=== PATIENT | female | born 1990 | race Caucasian/White ===

== ENCOUNTER 2017-04-15 19:20 | Emergency (ER) | payer SELFPAY ==
[2017-04-15 20:49] LABS: CHLORIDE,CL 105 mmol/L (98-110); SODIUM,NA 136 mmol/L (136-146)
--- NOTE | 2017-04-15 21:13 | EDM.PDOC ---
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 Patient indicates she has a positive home test but otherwise does not know how far along she is or has had no OB workup.] Review of systems: As per history of present illness and below otherwise all systems reviewed and negative. Past medical history: As per history of present illness and as reviewed below otherwise noncontributory. Surgical history: As per history of present illness and as reviewed below otherwise noncontributory. Social history: No reported history of drug or alcohol abuse. Family history: As per history of present illness and as reviewed below otherwise noncontributory. Physical exam: HEENT: Atraumatic, normocephalic, pupils reactive, negative for conjunctival pallor or scleral icterus, mucous membranes moist, throat clear, neck supple, nontender, trachea midline. Lungs: Clear to auscultation, breath sounds equal bilaterally, chest nontender. Heart: S1S2, regular, negative for clicks, rubs, or JVD. Abdomen: Soft, nondistended, nontender. Negative for masses or hepatosplenomegaly. Negative for costovertebral tenderness. Pelvis: Stable nontender. Genitourinary: Deferred. Rectal: Deferred. Extremities: Atraumatic, negative for cords or calf pain. Neurovascular unremarkable. Neuro: Awake, alert, oriented. Cranial nerves II through XII unremarkable. Cerebellum unremarkable. Motor and sensory unremarkable throughout. Exam nonfocal. Global assessment is benign save the subjective complaint as noted in the history of present illness Diagnostics: [Serum quantitative, ultrasound, CBC CMP] Therapeutics: [] Impression: [Second trimester (approx 17 weeks 4 days)] Plan: [Follow-up with OB] Definitive disposition and diagnosis as appropriate pending reevaluation and review of above. hypogastric area Pain Score (Numeric/FACES): 5 - Related Data Allergies Allergy/AdvReac Type Severity Reaction Status Date / Time No Known Allergies Allergy Verified 04/15/17 19:44 Home Meds: Home Meds . [No Known Home Meds] 04/15/17 [History] Past Medical History - Past Health History Medical/Surgical History: Denies Medical/Surgical History Neurological History: Reports: Migraines Social & Family History - Family History Family Medical History: Noncontributory - Tobacco Use Smoking Status *Q: Current Every Day Smoker Years of Tobacco use: 11 Packs/Tins Daily: 1 - Recreational Drug Use Recreational Drug Use: Yes Drug Use in Last 12 Months: Yes Recreational Drug Type: Reports: Marijuana/Hashish ED ROS GENERAL - Review of Systems Review Of Systems: See Below (History of present illness) ED EXAM, GENERAL - Physical Exam Exam: See Below (History of present illness) Course - Vital Signs Last Recorded V/S: Last Vital Signs Temp 36.7 C 04/15/17 19:20 Pulse 75 04/15/17 19:20 Resp 18 04/15/17 19:20 BP 101/69 04/15/17 19:20 Pulse Ox 99 04/15/17 19:20 - Orders/Labs/Meds Orders: Active Orders 24 hr Category Date Time Status OB 2 Or 3 Tri Sgl 1st Gest [US] Stat Exams 04/15/17 20:11 Taken Labs: Laboratory Tests 04/15/17 04/15/17 04/15/17 Range/Units 20:14 20:20 20:20 WBC 11.23 H (4.0-11.0) K/uL RBC 4.00 L (4.30-5.90) M/uL Hgb 12.5 (12.0-16.0) g/dL Hct 37.7 (36.0-46.0) % MCV 94.3 (80.0-98.0) fL MCH 31.3 (27.0-32.0) pg MCHC 33.2 (31.0-37.0) g/dL RDW Std Deviation 45.2 (28.0-62.0) fl RDW Coeff of Bernadette 13 (11.0-15.0) % Plt Count 215 (150-400) K/uL MPV 9.90 (7.40-12.00) fL Neut % (Auto) 71.6 (48.0-80.0) % Lymph % (Auto) 19.2 (16.0-40.0) % [place] % (Auto) 7.5 (0.0-15.0) % Eos % (Auto) 1.4 (0.0-7.0) % Baso % (Auto) 0.3 (0.0-1.5) % Neut # (Auto) 8.0 H (1.4-5.7) K/uL Lymph # (Auto) 2.2 (0.6-2.4) K/uL Hettinger # (Auto) 0.8 (0.0-0.8) K/uL Eos # (Auto) 0.2 (0.0-0.7) K/uL Baso # (Auto) 0.0 (0.0-0.1) K/uL Nucleated RBC % 0.0 /100WBC Nucleated RBCs # 0 K/uL Sodium 136 (136-146) mmol/L Potassium 3.7 (3.5-5.1) mmol/L Chloride 105 (98-110) mmol/L Carbon Dioxide 23 (21-31) mmol/L BUN 8 (6.0-23.0) mg/dL Creatinine 0.7 (0.6-1.5) mg/dL Est Cr Clr Drug Dosing 103.63 mL/min Estimated GFR (MDRD) > 60.0 ml/min Glucose 78 (60-110) mg/dL Calcium 8.9 (8.8-10.8) mg/dL Total Bilirubin 0.2 (0.1-1.5) mg/dL AST 15 (5-40) IU/L ALT 12 (8-54) IU/L Alkaline Phosphatase 50 (40-150) Total Protein 7.2 (6.0-8.0) g/dL Albumin 3.7 (3.5-5.0) g/dL Globulin 3.5 (2.0-3.5) g/dL Albumin/Globulin Ratio 1.1 L (1.3-2.8) HCG, Quant 46862.3 mIU/mL Urine Color YELLOW Urine Appearance SLT CLOUDY Urine pH 7.0 (5.0-8.0) Ur Specific [place] 1.020 (1.001-1.035) Urine Protein NEGATIVE (NEGATIVE) mg/dL Urine Glucose (UA) NEGATIVE (NEGATIVE) mg/dL Urine Ketones NEGATIVE (NEGATIVE) mg/dL Urine Occult Blood NEGATIVE (NEGATIVE) Urine Nitrite NEGATIVE (NEGATIVE) Urine Bilirubin NEGATIVE (NEGATIVE) Urine Urobilinogen 0.2 (<2.0) EU/dL Ur Leukocyte Esterase NEGATIVE (NEGATIVE) Urine RBC 0-1 (0-2/HPF) Urine WBC 0-1 (0-5/HPF) Ur Epithelial Cells FEW (NONE-FEW) Amorphous Sediment MODERATE (NEGATIVE) Urine Bacteria FEW (NEGATIVE) Blood Type 04/15/17 Range/Units 20:20 WBC (4.0-11.0) K/uL RBC (4.30-5.90) M/uL Hgb (12.0-16.0) g/dL Hct (36.0-46.0) % MCV (80.0-98.0) fL MCH (27.0-32.0) pg MCHC (31.0-37.0) g/dL RDW Std Deviation (28.0-62.0) fl RDW Coeff of Bernadette (11.0-15.0) % Plt Count (150-400) K/uL MPV (7.40-12.00) fL Neut % (Auto) (48.0-80.0) % Lymph % (Auto) (16.0-40.0) % [place] % (Auto) (0.0-15.0) % Eos % (Auto) (0.0-7.0) % Baso % (Auto) (0.0-1.5) % Neut # (Auto) (1.4-5.7) K/uL Lymph # (Auto) (0.6-2.4) K/uL [place] # (Auto) (0.0-0.8) K/uL Eos # (Auto) (0.0-0.7) K/uL Baso # (Auto) (0.0-0.1) K/uL Nucleated RBC % /100WBC Nucleated RBCs # K/uL Sodium (136-146) mmol/L Potassium (3.5-5.1) mmol/L Chloride (98-110) mmol/L Carbon Dioxide (21-31) mmol/L BUN (6.0-23.0) mg/dL Creatinine (0.6-1.5) mg/dL Est Cr Clr Drug Dosing mL/min Estimated GFR (MDRD) ml/min Glucose (60-110) mg/dL Calcium (8.8-10.8) mg/dL Total Bilirubin (0.1-1.5) mg/dL AST (5-40) IU/L ALT (8-54) IU/L Alkaline Phosphatase (40-150) Total Protein (6.0-8.0) g/dL Albumin (3.5-5.0) g/dL Globulin (2.0-3.5) g/dL Albumin/Globulin Ratio (1.3-2.8) HCG, Quant mIU/mL Urine Color Urine Appearance Urine pH (5.0-8.0) Ur Specific [place] (1.001-1.035) Urine Protein (NEGATIVE) mg/dL Urine Glucose (UA) (NEGATIVE) mg/dL Urine Ketones (NEGATIVE) mg/dL Urine Occult Blood (NEGATIVE) Urine Nitrite (NEGATIVE) Urine Bilirubin (NEGATIVE) Urine Urobilinogen (<2.0) EU/dL Ur Leukocyte Esterase (NEGATIVE) Urine RBC (0-2/HPF) Urine WBC (0-5/HPF) Ur Epithelial Cells (NONE-FEW) Amorphous Sediment (NEGATIVE) Urine Bacteria (NEGATIVE) Blood Type O POSITIVE Departure - Departure Time of Disposition: 21:41 Disposition: Home, Self-Care 01 Condition: Good Clinical Impression: - Discharge Information Referrals: PCP,None [Primary Care Provider] - Forms: ED Department Discharge Additional Instructions: The following information is given to patients seen in the emergency department who are being discharged to home. This information is to outline your options for follow-up care. We provide all patients seen in our emergency department with a follow-up referral. The need for follow-up, as well as the timing and circumstances, are variable depending upon the specifics of your emergency department visit. If you don't have a primary care physician on staff, we will provide you with a referral. We always advise you to contact your personal physician following an emergency department visit to inform them of the circumstance of the visit and for follow-up with them and/or the need for any referrals to a consulting specialist. The emergency department will also refer you to a specialist when appropriate. This referral assures that you have the opportunity for follow-up care with a specialist. All of these measure are taken in an effort to provide you with optimal care, which includes your follow-up. Under all circumstances we always encourage you to contact your private physician who remains a resource for coordinating your care. When calling for follow-up care, please make the office aware that this follow-up is from your recent emergency room visit. If for any reason you are refused follow-up, please contact the [facility] Emergency Department at and asked to speak to the emergency department charge nurse. Follow-up with an FIRE PREVENTION SPECIALIST Return to ED as needed as discussed [facility] [address] [place] [id number]
--- NOTE | 2017-04-16 11:53 | US ---
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 Site : 1990 Study: US OB Pelvis [id number]/30/2017 9:09:35 PM Ordering Physician: Doctor Greenberg Final Report: INDICATION: Pelvic pain. TECHNIQUE: Limited transabdominal obstetrical ultrasound. COMPARISON: None available FINDINGS: A single live intrauterine gestation is present. Estimated gestational age based on biparietal diameter, head circumference, abdominal circumference and femur length is 17 weeks and 4 days. There is cardiac activity with a heart rate of 139 BPM. Evaluation of anatomy is very limited. The placenta is posterior. An MICAH is not measured. The cervix is not well visualized. Neither ovary is seen. No free fluid is identified. IMPRESSION: A single live intrauterine gestation at 7 weeks and 4 days by sonographic measurements. Limited evaluation of anatomy. A full anatomical survey is recommended at 18-20 weeks. Nonvisualization of the ovaries. Dictated by Lisandro Ruvalcaba MD @ 04/15/2017 9:21:56 PM Dictated by: Lisandro Ruvalcaba MD @ 04/15/2017 21:22:10 ----- ADDENDUM ----- CORRECTION: The 1st impression entry should say: "A single live intrauterine gestation at 17 weeks and 4 days by sonographic measurements." Dictated by Lisandro Ruvalcaba MD @ Apr 15 2017 9:49PM (Electronic Signature) Report Signed by Proxy. JULITO
== END 2017-04-15 22:17 | disposition home or self-care (01) ==
LOC: MW.ED 19:20
DX: O99.89 Other specified diseases and conditions complicating pregnancy, childbirth and the puerperium (principal); R10.84 Generalized abdominal pain; O99.332 Smoking (tobacco) complicating pregnancy, second trimester; F17.210 Nicotine dependence, cigarettes, uncomplicated; Z3A.17 17 weeks gestation of pregnancy
CPT/HCPCS: 36415; 76805; 76805-26; 80053; 81001; 84702; 85025; 86900; 86901; 99283; 99284-25

== ENCOUNTER 2017-09-26 14:45 | Inpatient (IN) | payer MEDICAID ==
[2017-09-26] MEDS ORDERED: Nalbuphine 10 MG/1 ML Vial IVPUSH PRN (15:56)
[2017-09-26] MEDS ORDERED: Water For Irrigation,Sterile 1,000 ML Container IRR PRN (15:56)
[2017-09-26] MEDS ORDERED: Lidocaine 1% 50 ML MDV INJECT PRN (15:56)
[2017-09-26] MEDS ORDERED: Sodium Chloride 0.9% 10 ML Syringe FLUSH PRN (15:56)
[2017-09-26] MEDS ORDERED: Sodium Chloride 0.9% 2.5 ML Syringe FLUSH PRN (15:56)
[2017-09-26] MEDS ORDERED: Tranexamic Acid 1,000 MG in Sodium Chloride 0.9% 100 ML IV PRN (15:56)
[2017-09-26] MEDS ORDERED: Methylergonovine 0.2 MG/1 ML Amp IM PRN (15:56)
[2017-09-26] MEDS ORDERED: Terbutaline 1 MG/ML SDV SUBCUT PRN (15:56)
[2017-09-26] MEDS ORDERED: Misoprostol 200 MCG Tab PO PRN (15:56)
[2017-09-26] MEDS ORDERED: Carboprost Tromethamine 250 MCG/1 ML Amp IM PRN (15:56)
[2017-09-26] MEDS ORDERED: Misoprostol 25 MCG (1/4 of 100 MCG) Tab VAG PRN (15:56)
[2017-09-26] MEDS ORDERED: Oxytocin/0.9 % Sodium Chloride 30 UNIT/500 ML BAG IV SCH ×2 (16:00)
[2017-09-26] MEDS: Butorphanol 1 MG/ML SDV IVPUSH PRN ×2 (21:36→22:21)
[2017-09-26] MEDS: Lactated Ringers 1,000 ML IV SCH ×2 (21:36→23:16)
[2017-09-26] MEDS ORDERED: Ropivacaine 0.2% 2 MG/ML 20 ML SDV ONE (22:59)
--- NOTE | 2017-09-26 23:26 | PCM.PREANE ---
Preanesthetic Assessment - Procedure Proposed Procedure: labor epidural - Anesthesia/Transfusion/Family Hx Anesthesia History: No Prior Anesthesia Family History of Anesthesia Reaction: No - Review of Systems Other: Reports: None - Physical Assessment Height: 5 ft 5 in Weight: 71.668 kg ASA Class: 2 Mental Status: Alert & Oriented x3 Airway Class: Mallampati = 1 Dentition: Reports: Normal Dentition (multiple facial and tongue piercing) Thyro-Mental Finger Breadths: 3 Mouth Opening Finger Breadths: 3 ROM/Head Extension: Full - Lab Values: Laboratory Last Values WBC 8.62 K/uL (4.0-11.0) 09/26/17 16:10 RBC 3.84 M/uL (4.30-5.90) L 09/26/17 16:10 Hgb 11.0 g/dL (12.0-16.0) L 09/26/17 16:10 Hct 34.0 % (36.0-46.0) L 09/26/17 16:10 MCV 88.5 fL (80.0-98.0) 09/26/17 16:10 MCH 28.6 pg (27.0-32.0) 09/26/17 16:10 MCHC 32.4 g/dL (31.0-37.0) 09/26/17 16:10 RDW Std Deviation 42.9 fl (28.0-62.0) 09/26/17 16:10 RDW Coeff of Bernadette 13 % (11.0-15.0) 09/26/17 16:10 Plt Count 202 K/uL (150-400) 09/26/17 16:10 MPV 11.50 fL (7.40-12.00) 09/26/17 16:10 Nucleated RBC % 0.0 /100WBC 09/26/17 16:10 Nucleated RBCs # 0 K/uL 09/26/17 16:10 Blood Type O POSITIVE 09/26/17 17:09 Antibody Screen NEGATIVE 09/26/17 17:09 - Allergies Allergies/Adverse Reactions: Allergies Allergy/AdvReac Type Severity Reaction Status Date / Time No Known Allergies Allergy Verified 09/26/17 22:08 - Blood Blood Available: Yes Product(s) Available: PRBC - Acknowledgements Anesthesia Type Planned: Epidural Pt an Appropriate Candidate for the Planned Anesthesia: Yes Alternatives and Risks of Anesthesia Discussed w Pt/Guardian: Yes Pt/Guardian Understands and Agrees with Anesthesia Plan: Yes PreAnesthesia Questionnaire - Past Health History Medical/Surgical History: Denies Medical/Surgical History HEENT History: Reports: Other (See Below) Other HEENT History: glasses Cardiovascular History: Reports: Heart Murmur Other Cardiovascular History: was diagnosed as a Respiratory History: Reports: Other (See Below) Other Respiratory History: Environmental allergies sneezing and itching of eyes [employer] History: Reports: Musculoskeletal History: Reports: Other (See Below) Other Musculoskeletal History: fell during 5th month of on steps and has a sore tailbone, never went to physician and sore now. Neurological History: Reports: Concussion, Migraines Other Neuro History: x3 - Infectious Disease History Infectious Disease History: Reports: Chicken Pox - Past Surgical History HEENT Surgical History: Reports: None Cardiovascular Surgical History: Reports: None Respiratory Surgical History: Reports: None Neurological Surgical History: Reports: None - SUBSTANCE USE Smoking Status *Q: Light Tobacco Smoker Tobacco Use Within Last Twelve Months: Cigarettes Recreational Drug Use History: Yes Recreational Drug Type: Reports: Marijuana/Hashish - HOME MEDS Home Medications: Home Meds Ranitidine HCl [Zantac 75] 09/26/17 [History] - CURRENT (IN HOUSE) MEDS Current Meds: Current Medications Butorphanol Tartrate (Stadol) 1 mg IVPUSH Q1H PRN PRN Reason: Pain Last Admin: 09/26/17 22:21 Dose: 1 mg Carboprost Tromethamine (Hemabate Ds) 250 mcg IM ASDIRECTED PRN PRN Reason: Post Hemorrhage Lactated Ringer's (Ringers, Lactated) 1,000 mls @ 150 mls/hr IV ASDIRECTED TOÑA Last Admin: 09/26/17 23:16 Dose: 150 mls/hr Oxytocin/Sodium Chloride (Oxytocin 30 Unit/500 Ml-Ns) 30 unit in 500 mls @ 999 mls/hr IV TITRATE TOÑA Oxytocin/Sodium Chloride (Oxytocin 30 Unit/500 Ml-Ns) 30 unit in 500 mls @ 2 mls/hr IV TITRATE TOÑA; Protocol Tranexamic Acid 1,000 mg/ (Sodium Chloride) 110 mls @ 660 mls/hr IV ONETIME PRN PRN Reason: Bleeding Lidocaine HCl (Xylocaine 1%) 50 ml INJECT .ONCE PRN PRN Reason: Laceration repair Methylergonovine Maleate (Methergine) 0.2 mg IM ASDIRECTED PRN PRN Reason: Post Hemorrhage Misoprostol (Cytotec) 200 mcg PO .ONCE PRN PRN Reason: Post Hemorrhage Misoprostol (Cytotec) 25 mcg VAG Q4H PRN PRN Reason: Cervical Ripening Last Admin: 09/26/17 16:45 Dose: 25 mcg Nalbuphine HCl (Nubain) 10 mg IVPUSH Q1H PRN PRN Reason: Pain (severe 7-10) Sodium Chloride (Saline Flush) 10 ml FLUSH ASDIRECTED PRN PRN Reason: Keep Vein Open Sodium Chloride (Saline Flush) 2.5 ml FLUSH ASDIRECTED PRN PRN Reason: Keep Vein Open Sterile Water (Sterile Water For Irrigation) 1,000 ml IRR ASDIRECTED PRN PRN Reason: delivery Terbutaline Sulfate (Brethine) 0.25 mg SUBCUT ASDIRECTED PRN PRN Reason: Tacysystole Discontinued Medications Fentanyl/Bupivacaine HCl (Dlbjcjwv-[id number]-Xo 2 Mcg/Ml-0.125%) Confirm Administered Dose 100 mls @ as directed EP .STK-MED ONE Stop: 09/26/17 23:00 Ropivacaine (Naropin 0.2%) Confirm Administered Dose 20 ml .ROUTE .STK-MED ONE Stop: 09/26/17 23:00
[2017-09-27] MEDS ORDERED: Morphine PF 1 MG/ML Amp ONE (01:19)
[2017-09-27] MEDS ORDERED: ceFAZolin/Dextrose,Iso-Osmotic 2 GM/50 ML Duplex Bag IV ONE (01:19)
[2017-09-27] MEDS ORDERED: Bupivacaine 0.5% 10 ML SDV ONE (01:23)
[2017-09-27] MEDS ORDERED: Citric Acid/Sodium Citrate Solution 30 ML Cup ONE (01:24)
[2017-09-27] MEDS ORDERED: Phenylephrine/Normal Saline 100 MCG/ML 10 ML Syringe ONE (01:50)
[2017-09-27] MEDS ORDERED: Oxytocin 10 Units/1 ML SDV ONE ×2 (02:04→02:05)
[2017-09-27] MEDS ORDERED: Bisacodyl 10 MG Supp RECTAL PRN (02:20)
[2017-09-27] MEDS ORDERED: diphenhydrAMINE 50 MG/ML SDV IVPUSH PRN ×2 (02:20→02:42)
[2017-09-27] MEDS ORDERED: Acetaminophen/oxyCODONE 325-5 MG Tab PO PRN ×2 (02:20→02:45)
[2017-09-27] MEDS ORDERED: Lanolin 100% Cream 7 GM Tube TOP PRN (02:20)
--- NOTE | 2017-09-27 02:20 | PCM.OPNOTE ---
- General Post-Op/Procedure Note Date of Surgery/Procedure: 09/27/17 Operative Procedure(s): Primary LTCS Findings: Viable male APGARs 8, 9 weight 8 lb 2 oz, breech presentation. Intact placenta with 3V cord Pre Op Diagnosis: 41 week IUP. Breech presentation Post-Op Diagnosis: Same Anesthesia Technique: Epidural Primary Surgeon: Vashti Lucero Fluid Replacement, Intraop: 1,300 EBL in mLs: 500 Complications: none known Condition: Good Free Text/Narrative:: Dictation [id number]
[2017-09-27] MEDS ORDERED: Lactated Ringers 1,000 ML IV SCH (02:30)
[2017-09-27] MEDS ORDERED: Nalbuphine 10 MG/1 ML Vial IVPUSH PRN (02:42)
[2017-09-27] MEDS ORDERED: Naloxone 0.4 MG/ML Syringe IVPUSH PRN (02:42)
[2017-09-27] MEDS ORDERED: fentaNYL 100 MCG/2 ML SDV IVPUSH PRN (02:45)
--- NOTE | 2017-09-27 02:47 | PCM.POSTAN ---
POST ANESTHESIA ASSESSMENT - MENTAL STATUS Mental Status: Alert, Oriented - RESPIRATORY Respiratory Status: Respiratory Rate WNL, Airway Patent, O2 Saturation Stable - CARDIOVASCULAR CV Status: Pulse Rate WNL, Blood Pressure Stable - GASTROINTESTINAL GI Status: No Symptoms - PAIN Pain Score: 0 - POST OP HYDRATION Hydration Status: Adequate & Stable
[2017-09-27] MEDS ORDERED: Meperidine PF 25 MG/ML Syringe ONE (02:52)
[2017-09-27] MEDS ORDERED: diphenhydrAMINE 50 MG/ML SDV ONE (02:56)
[2017-09-27] MEDS: Ketorolac 30 MG/ML SDV IVPUSH SCH ×4 (02:59→21:26)
[2017-09-27] MEDS: Ondansetron 4 MG/2 ML SDV IV PRN ×2 (04:03→18:11)
--- NOTE | 2017-09-27 04:27 | OR ---
SURGEON: Vashti Lucero M.D. DATE OF PROCEDURE: 09/27/2017 PREOPERATIVE DIAGNOSES: 1. A 41-week intrauterine . 2. Breech presentation. POSTOPERATIVE DIAGNOSES: 1. A 41-week intrauterine . 2. Breech presentation. PROCEDURE: Primary low-transverse section. ANESTHESIA: Epidural. ESTIMATED BLOOD LOSS: 500 mL. FLUIDS: 1300 mL crystalloid in OR. COMPLICATIONS: None. FINDINGS: Viable male, scores 8 at 1 minute, 9 at 5 minutes. Weight of 8 pounds 2 ounces. Intact placenta, 3-vessel cord. Normal-appearing pelvis. DISPOSITION: to nursery, mom to PACU, stable. PROCEDURE IN DETAIL: Marija is a 27-year-old, primigravida at 41 weeks' gestational age, who presented on the evening of 09/27/2017, for induction of labor. She is actually followed by Dr. Michael Angulo and was supposed to be induced previous days; however, this induction had been delayed due to activity on Labor and Delivery. Therefore, she presents this evening and we are now covering for my practice. She underwent initial dose of Cytotec ripening as she was found to be a centimeter, 60% effaced, -3 station on initial presentation. The patient responded rather well to this. Began laboring progressively, changed cervix within a few hours, had spontaneous rupture of membranes with clear fluid, and underwent regional anesthesia in the form of epidural. As the patient was nearing complete, the nurse examined her and noted that she was not palpating typical sutures. A sonogram was performed and the fetus was found to be in breech presentation. I presented to Labor and Delivery, evaluated the patient and confirmed breech presentation. Therefore, I discussed with the patient that at this juncture would advise proceeding with delivery to decrease the risk of cephalic entrapment. She voiced her understanding and does agree to proceed. Risks of procedure discussed including infection, bleeding, possible trauma surrounding bowel, bladder, ureter, in case of excessive blood loss, need for blood product transfusion, rare lifesaving circumstances, need for hysterectomy. Proper consent obtained. The patient was taken to the operating room, where she underwent of her epidural. A Bro catheter was in place. SCDs for lower extremities. Received Ancef prophylactically. Time-out was performed. She was prepped and draped in the usual sterile fashion. She was placed in frog-leg position. Labor and Delivery nurse was placed for vaginal hand for assistance with delivery of the buttocks. Draping was placed. Anesthesia was tested, found to be adequate. Pfannenstiel skin incision was created, carried down to level of the rectus fascia which was incised in midline, lateralized on either side sharply and bluntly. The superior aspect of fascia was tented upward, dissected sharply and bluntly from underlying muscle. In a similar fashion performed on the inferior aspect of the fascia. Rectus muscles were in the midline. Peritoneum was entered. Rectus muscles and peritoneum were lateralized bluntly. Uterine position and position palpated. The uterovesical reflection was visualized. Bladder flap was created and mobilized away from lower uterine segment. Low transverse hysterotomy was now performed. Uterine cavity was entered bluntly with the scalpel. Hysterotomy was lateralized bluntly. The nurse was able to move the buttocks cephalad while I was attempting to deliver from the pelvis. I was able to secure the buttocks delivered from the pelvis. The buttocks were delivered followed by the lower extremities, trunk, left upper extremity, right upper extremity. The head was flexed and delivered. Nuchal cord x1 was noted to be present. The 's oropharynx and nares were bulb suctioned. Cord clamped x2 and cut. Infant was handed off to attending physician, Dr. physician Dr. Ann. Cord arterial, cord venous, cord blood samples obtained. The placenta was now delivered. Uterine cavity was cleared of all clot and debris. The uterus was inspected and noted to have any anomalies. Hysterotomy was repaired using 0 Vicryl in continuous running and locked fashion followed by re-imbricating layer. Area of oozing in midline was replicated with [id number] suture. The posterior aspect of the uterus inspected, no defects or hematomas found to be forming. The region was well irrigated and suction dried. Uterus was turned to the abdominal cavity. Colonic gutters were cleared of all clot and debris, well irrigated, suction dried. The hysterotomy was again inspected and found to be hemostatic. Self-retaining tractor now gently removed. Hysterotomy once again inspected and found to be hemostatic. Rectus muscles and peritoneum were reapproximated using 0 Vicryl with inverted mattress suture technique. Anterior aspect of the muscle and posterior aspect of the fascia were closely inspected. Any areas of oozing were cauterized. The rectus fascia was reapproximated using 0 Vicryl in continuous running fashion beginning laterally on either side and meeting in the midline. Subcutaneous tissue was well irrigated and suction dried. Any areas of oozing were cauterized. The skin edges were reapproximated using 3-0 Vicryl and a Nigel needle in a subcuticular fashion. Incision was re-imbricated with 1/2-inch Steri-Strips and Mastisol. Sponge, instrument, and needle counts were correct x2. The patient has tolerated the procedure well overall, hemostasis evident. She will go back to PACU in stable condition. Infant to nursery. LETA / RACHEL /[id number] MTDD
--- NOTE | 2017-09-27 07:50 | PCM48HPAN ---
Post Anesthesia Note - EVALUATION WITHIN 48HRS OF ANESTHETIC Vital Signs in Normal Range: Yes Patient Participated in Evaluation: Yes Respiratory Function Stable: Yes Airway Patent: Yes Cardiovascular Function Stable: Yes Hydration Status Stable: Yes Pain Control Satisfactory: Yes Nausea and Vomiting Control Satisfactory: Yes Mental Status Recovered: Yes Resp Rate: 17
[2017-09-27] MEDS ORDERED: Simethicone 80 MG Tab.Chew PO PRN (08:16)
--- NOTE | 2017-09-27 08:16 | PCM.PNPP ---
- General Info Date of Service: 09/27/17 Subjective Update: Rested some through the night, pain is controlled. is going fairly well. Functional Status: Reports: Pain Controlled - Review of Systems General: Denies: Fever, Weakness Pulmonary: Denies: Shortness of Breath Cardiovascular: Denies: Chest Pain, Palpitations, Lightheadedness Gastrointestinal: Reports: Abdominal Pain (controlled incisional pain). Denies : Nausea, Vomiting Genitourinary: Denies: Flank Pain Skin: Reports: No Symptoms Psychiatric: Reports: No Symptoms - General Info Date of Service: 09/27/17 - Patient Data Vital Signs - Most Recent: Last Vital Signs Temp 36.7 C 09/27/17 08:00 Pulse 85 09/27/17 08:00 Resp 14 09/27/17 08:00 BP 118/72 09/27/17 08:00 Pulse Ox 94 L 09/27/17 08:00 Weight - Most Recent: 71.668 kg I&O - Last 24 Hours: Intake & Output 09/26/17 09/27/17 09/27/17 22:59 06:59 14:59 Intake Total 3450 Output Total 360 Balance 3090 Lab Results - Last 24 Hours: Laboratory Results - last 24 hr 09/26/17 09/26/17 09/27/17 Range/Units 16:10 17:09 01:44 WBC 8.62 (4.0-11.0) K/uL RBC 3.84 L (4.30-5.90) M/uL Hgb 11.0 L (12.0-16.0) g/dL Hct 34.0 L (36.0-46.0) % MCV 88.5 (80.0-98.0) fL MCH 28.6 (27.0-32.0) pg MCHC 32.4 (31.0-37.0) g/dL RDW Std Deviation 42.9 (28.0-62.0) fl RDW Coeff of Bernadette 13 (11.0-15.0) % Plt Count 202 (150-400) K/uL MPV 11.50 (7.40-12.00) fL Nucleated RBC % 0.0 /100WBC Nucleated RBCs # 0 K/uL Cord ABG pH 7.169 L (7.18-7.38) Cord ABG Base Excess -7 (-10--2) Cord VBG pH 7.235 L (7.25-7.45) Cord VBG Base Excess -7 (-10--2) Blood Type O POSITIVE Antibody Screen NEGATIVE Med Orders - Current: Current Medications Bisacodyl (Dulcolax) 10 mg RECTAL .ONCE PRN PRN Reason: Constipation Butorphanol Tartrate (Stadol) 1 mg IVPUSH Q1H PRN PRN Reason: Pain Last Admin: 09/26/17 22:21 Dose: 1 mg Carboprost Tromethamine (Hemabate Ds) 250 mcg IM ASDIRECTED PRN PRN Reason: Post Hemorrhage Diphenhydramine HCl (Benadryl) 25 mg IVPUSH Q6H PRN PRN Reason: Itching or Nausea Diphenhydramine HCl (Benadryl) 25 mg IVPUSH Q4H PRN PRN Reason: Itching Stop: 09/28/17 02:44 Docusate Sodium (Colace) 100 mg PO BID [facility] Emollient Ointment (Lansinoh Hpa) 0 gm TOP ASDIRECTED PRN PRN Reason: Sore Nipples Fentanyl (Sublimaze) 25 - 50 mcg IVPUSH Q30M PRN PRN Reason: Pain Lactated Ringer's (Ringers, Lactated) 1,000 mls @ 150 mls/hr IV ASDIRECTED [facility] Last Admin: 09/26/17 23:16 Dose: 150 mls/hr Oxytocin/Sodium Chloride (Oxytocin 30 Unit/500 Ml-Ns) 30 unit in 500 mls @ 999 mls/hr IV TITRATE [facility] Oxytocin/Sodium Chloride (Oxytocin 30 Unit/500 Ml-Ns) 30 unit in 500 mls @ 2 mls/hr IV TITRATE [facility]; Protocol Tranexamic Acid 1,000 mg/ (Sodium Chloride) 110 mls @ 660 mls/hr IV ONETIME PRN PRN Reason: Bleeding Lactated Ringer's (Ringers, Lactated) 1,000 mls @ 125 mls/hr IV ASDIRECTED [facility] Last Admin: 09/27/17 04:06 Dose: 125 mls/hr Ibuprofen (Motrin) 800 mg PO Q8H PRN PRN Reason: mild pain or fever Ketorolac Tromethamine (Toradol) 30 mg IVPUSH Q6H [facility] Stop: 09/28/17 02:31 Last Admin: 09/27/17 02:59 Dose: 30 mg Lidocaine HCl (Xylocaine 1%) 50 ml INJECT .ONCE PRN PRN Reason: Laceration repair Methylergonovine Maleate (Methergine) 0.2 mg IM ASDIRECTED PRN PRN Reason: Post Hemorrhage Misoprostol (Cytotec) 200 mcg PO .ONCE PRN PRN Reason: Post Hemorrhage Misoprostol (Cytotec) 25 mcg VAG Q4H PRN PRN Reason: Cervical Ripening Last Admin: 09/26/17 16:45 Dose: 25 mcg Nalbuphine HCl (Nubain) 10 mg IVPUSH Q1H PRN PRN Reason: Pain (severe 7-10) Nalbuphine HCl (Nubain) 5 mg IVPUSH Q3H PRN PRN Reason: Pruritis Stop: 09/28/17 02:45 Naloxone HCl (Narcan) 0.1 mg IVPUSH ONETIME PRN PRN Reason: Other Stop: 09/28/17 02:45 Ondansetron HCl (Zofran) 4 mg IV Q4H PRN PRN Reason: Nausea/Vomiting Last Admin: 09/27/17 04:03 Dose: 4 mg Oxycodone/Acetaminophen (Percocet 325-5 Mg) 1 tab PO Q4H PRN PRN Reason: Pain (moderate 4-6) Oxycodone/Acetaminophen (Percocet 325-5 Mg) 2 tab PO Q4H PRN PRN Reason: Pain (moderate 4-6) Oxycodone/Acetaminophen (Percocet 325-5 Mg) 1 - 2 tab PO Q6H PRN PRN Reason: Pain Stop: 09/29/17 14:00 Sodium Chloride (Saline Flush) 10 ml FLUSH ASDIRECTED PRN PRN Reason: Keep Vein Open Sodium Chloride (Saline Flush) 2.5 ml FLUSH ASDIRECTED PRN PRN Reason: Keep Vein Open Sterile Water (Sterile Water For Irrigation) 1,000 ml IRR ASDIRECTED PRN PRN Reason: delivery Terbutaline Sulfate (Brethine) 0.25 mg SUBCUT ASDIRECTED PRN PRN Reason: Tacysystole Last Admin: 09/27/17 01:03 Dose: 0.25 mg Discontinued Medications Bupivacaine HCl (Sensorcaine-Mpf 0.5%) Confirm Administered Dose 20 ml .ROUTE .STK-MED ONE Stop: 09/27/17 01:24 Last Admin: 09/27/17 07:42 Dose: Not Given Cefazolin Sodium/Dextrose (Ancef) Confirm Administered Dose 2 gm IV .STK-MED ONE Stop: 09/27/17 01:20 Citric Acid/Sodium Citrate (Bicitra Solution) Confirm Administered Dose 30 ml .ROUTE .ST-MED ONE Stop: 09/27/17 01:25 Last Admin: 09/27/17 01:24 Dose: 30 ml Diphenhydramine HCl (Benadryl) Confirm Administered Dose 50 mg .ROUTE .ST-MED ONE Stop: 09/27/17 02:57 Last Admin: 09/27/17 07:42 Dose: Not Given Fentanyl/Bupivacaine HCl (Osmrtfde-Nfbpo-Qm 2 Mcg/Ml-0.125%) Confirm Administered Dose 100 mls @ as directed EP .ST-MED ONE Stop: 09/26/17 23:00 Last Admin: 09/27/17 07:42 Dose: Not Given Meperidine HCl (Demerol) Confirm Administered Dose 25 mg .ROUTE .ST-MED ONE Stop: 09/27/17 02:53 Last Admin: 09/27/17 07:42 Dose: Not Given Morphine Sulfate (Duramorph Pf) Confirm Administered Dose 1 mg .ROUTE .STK-MED ONE Stop: 09/27/17 01:20 Oxytocin (Pitocin) Confirm Administered Dose 10 unit .ROUTE .STK-MED ONE Stop: 09/27/17 02:05 Oxytocin (Pitocin) Confirm Administered Dose 20 unit .ROUTE .STK-MED ONE Stop: 09/27/17 02:06 Phenylephrine HCl (Phenylephrine In Ns 100 Mcg/Ml) Confirm Administered Dose 1 mg .ROUTE .STK-MED ONE Stop: 09/27/17 01:51 Ropivacaine (Naropin 0.2%) Confirm Administered Dose 20 ml .ROUTE .STK-MED ONE Stop: 09/26/17 23:00 Last Admin: 09/27/17 07:42 Dose: Not Given - Interaction Support Person: Significant Other - Recovery Exam Fundal Tone: Firm Fundal Level: 1 Fingerbreadths Below Umbilicus Fundal Placement: Midline Lochia Amount: Small Lochia Color: Rubra/Red Perineum Description: Intact, Minimal Bruising/Swelling Bladder Status: Indwelling Catheter in Place Urinary Elimination: Indwelling Catheter - Exam General: Alert, Oriented Lungs: Normal Respiratory Effort Cardiovascular: Regular Rate, Regular Rhythm GI/Abdominal Exam: Soft, No Distention Extremities: Pedal Edema (trace). No: Rosa M's Sign Skin: Warm, Dry, Intact Wound/Incisions: Dressing Dry and Intact Psy/Mental Status: Alert - Problem List & Annotations (1) delivery delivered SNOMED Code(s): 233516650 Code(s): O82 - ENCOUNTER FOR DELIVERY WITHOUT INDICATION Status: Acute Current Visit: Yes - Problem List Review Problem List Initiated/Reviewed/Updated: Yes - My Orders Last 24 Hours: My Active Orders 09/26/17 15:56 Patient Status [ADT] Routine Bedrest Bathroom Privileges [RC] ASDIRECTED May Shower [RC] ASDIRECTED Oxygen Therapy [RC] ASDIRECTED Up ad Teresa [RC] ASDIRECTED Butorphanol [Stadol] 1 mg IVPUSH Q1H PRN Carboprost Tromethamine [Hemabate DS] 250 mcg IM ASDIRECTED PRN Lidocaine 1% [Xylocaine 1%] 50 ml INJECT .ONCE PRN Methylergonovine [Methergine] 0.2 mg IM ASDIRECTED PRN Misoprostol [Cytotec] 200 mcg PO .ONCE PRN Misoprostol [Cytotec] 25 mcg VAG Q4H PRN Nalbuphine [Nubain] 10 mg IVPUSH Q1H PRN Sodium Chloride 0.9% [Saline Flush] 10 ml FLUSH ASDIRECTED PRN Sodium Chloride 0.9% [Saline Flush] 2.5 ml FLUSH ASDIRECTED PRN Terbutaline [Brethine] 0.25 mg SUBCUT ASDIRECTED PRN Tranexamic Acid [Cyklokapron] 1,000 mg Sodium Chloride 0.9% [Normal Saline] 100 ml IV ONETIME Water For Irrigation,Sterile [Sterile Water for Irrigation] 1,000 ml IRR ASDIRECTED PRN Scalp Electrode [WOMSER] Per Unit Routine Peripheral IV Insertion Adult [OM.PC] Routine Resuscitation Status Routine 09/26/17 16:00 Lactated Ringers [Ringers, Lactated] 1,000 ml IV ASDIRECTED Oxytocin/0.9 % Sodium Chloride [Oxytocin 30 Unit/500 ML-NS] 30 unit in 500 ml IV TITRATE Oxytocin/0.9 % Sodium Chloride [Oxytocin 30 Unit/500 ML-NS] 30 unit in 500 ml IV TITRATE Medication Administration Instruction [OM.PC] Q3H 09/26/17 Dinner Clear Liquid Diet [DIET] 09/27/17 02:20 Notify Provider Intake and Out [RC] ASDIRECTED Notify Provider Vital Signs [RC] ASDIRECTED Acetaminophen/oxyCODONE [Percocet 325-5 MG] 1 tab PO Q4H PRN Acetaminophen/oxyCODONE [Percocet 325-5 MG] 2 tab PO Q4H PRN Bisacodyl [Dulcolax] 10 mg RECTAL .ONCE PRN Lanolin [Lansinoh HPA] See Dose Instructions TOP ASDIRECTED PRN Ondansetron [Zofran] 4 mg IV Q4H PRN diphenhydrAMINE [Benadryl] 25 mg IVPUSH Q6H PRN Abdominal Binder [OM.PC] Routine Heat Therapy [OM.PC] Routine Ice Therapy [OM.PC] Routine 09/27/17 02:21 Patient Status [ADT] Routine Ambulate [RC] PER UNIT ROUTINE Communication Order [RC] PER UNIT ROUTINE Communication Order [RC] PER UNIT ROUTINE Communication Order [RC] Per Unit Routine May Shower [RC] ASDIRECTED RT Incentive Spirometry [RC] Q2HWA Assess Lochia [WOMSER] Per Unit Routine Assess Uterine Involution [WOMSER] Per Unit Routine Breast Pump [WOMSER] Per Unit Routine Peripheral IV Discontinue [OM.PC] Routine Sequential Compression Device [OM.PC] Per Unit Routine 09/27/17 02:30 Ketorolac [Toradol] 30 mg IVPUSH Q6H Lactated Ringers [Ringers, Lactated] 1,000 ml IV ASDIRECTED 09/27/17 09:00 Docusate Sodium [Colace] 100 mg PO BID 09/27/17 Breakfast Regular Diet [DIET] 09/28/17 05:11 HEMOGLOBIN/HEMATOCRIT,HH [HEME] Timed 09/28/17 08:00 Ibuprofen [Motrin] 800 mg PO Q8H PRN - Assessment Assessment:: PPD 0 status post primary LTCS for breech presentation - Plan Plan:: Continue postoperative cares, VS are stable. Ambulate halls today.
[2017-09-27] MEDS: Docusate Sodium 100 MG Cap PO SCH ×2 (09:21→21:26)
[2017-09-27] MEDS: Bisacodyl 5 MG Tab PO SCH (09:25)
[2017-09-28] MEDS: Ketorolac 30 MG/ML SDV IVPUSH SCH (04:22)
--- NOTE | 2017-09-28 06:49 | PCM.PNPP ---
- General Info Date of Service: 09/28/17 Functional Status: Reports: Pain Controlled, Tolerating Diet, Ambulating, Urinating - Review of Systems General: Denies: Fever, Fatigue HEENT: Denies: Headaches Pulmonary: Denies: Shortness of Breath, Pleuritic Chest Pain Cardiovascular: Denies: Chest Pain, Palpitations, Dyspnea on Exertion, Edema Genitourinary: Denies: Dysuria, Flank Pain Psychiatric: Reports: Confusion, Depression, Mood Lability, Anxiety - General Info Date of Service: 09/28/17 - Patient Data Vital Signs - Most Recent: Last Vital Signs Temp 37.4 C 09/28/17 04:00 Pulse 82 09/28/17 04:00 Resp 18 09/28/17 04:00 BP 110/60 09/28/17 04:00 Pulse Ox 95 09/28/17 04:00 Weight - Most Recent: 158 lb I&O - Last 24 Hours: Intake & Output 09/27/17 09/27/17 09/28/17 14:59 22:59 06:59 Output Total 600 Balance -600 Lab Results - Last 24 Hours: Laboratory Results - last 24 hr 09/28/17 Range/Units 05:36 Hgb 8.6 L (12.0-16.0) g/dL Hct 27.4 L (36.0-46.0) % Med Orders - Current: Current Medications Bisacodyl (Dulcolax) 10 mg RECTAL .ONCE PRN PRN Reason: Constipation Bisacodyl (Dulcolax) 10 mg PO DAILY [facility] Last Admin: 09/27/17 09:25 Dose: 10 mg Butorphanol Tartrate (Stadol) 1 mg IVPUSH Q1H PRN PRN Reason: Pain Last Admin: 09/26/17 22:21 Dose: 1 mg Carboprost Tromethamine (Hemabate Ds) 250 mcg IM ASDIRECTED PRN PRN Reason: Post Hemorrhage Diphenhydramine HCl (Benadryl) 25 mg IVPUSH Q6H PRN PRN Reason: Itching or Nausea Docusate Sodium (Colace) 100 mg PO BID [facility] Last Admin: 09/27/17 21:26 Dose: 100 mg Emollient Ointment (Lansinoh Hpa) 0 gm TOP ASDIRECTED PRN PRN Reason: Sore Nipples Fentanyl (Sublimaze) 25 - 50 mcg IVPUSH Q30M PRN PRN Reason: Pain Lactated Ringer's (Ringers, Lactated) 1,000 mls @ 150 mls/hr IV ASDIRECTED [facility] Last Admin: 09/26/17 23:16 Dose: 150 mls/hr Oxytocin/Sodium Chloride (Oxytocin 30 Unit/500 Ml-Ns) 30 unit in 500 mls @ 999 mls/hr IV TITRATE [facility] Oxytocin/Sodium Chloride (Oxytocin 30 Unit/500 Ml-Ns) 30 unit in 500 mls @ 2 mls/hr IV TITRATE [facility]; Protocol Tranexamic Acid 1,000 mg/ (Sodium Chloride) 110 mls @ 660 mls/hr IV ONETIME PRN PRN Reason: Bleeding Lactated Ringer's (Ringers, Lactated) 1,000 mls @ 125 mls/hr IV ASDIRECTED [facility] Last Admin: 09/27/17 04:06 Dose: 125 mls/hr Ibuprofen (Motrin) 800 mg PO Q8H PRN PRN Reason: mild pain or fever Lidocaine HCl (Xylocaine 1%) 50 ml INJECT .ONCE PRN PRN Reason: Laceration repair Methylergonovine Maleate (Methergine) 0.2 mg IM ASDIRECTED PRN PRN Reason: Post Hemorrhage Misoprostol (Cytotec) 200 mcg PO .ONCE PRN PRN Reason: Post Hemorrhage Misoprostol (Cytotec) 25 mcg VAG Q4H PRN PRN Reason: Cervical Ripening Last Admin: 09/26/17 16:45 Dose: 25 mcg Nalbuphine HCl (Nubain) 10 mg IVPUSH Q1H PRN PRN Reason: Pain (severe 7-10) Ondansetron HCl (Zofran) 4 mg IV Q4H PRN PRN Reason: Nausea/Vomiting Last Admin: 09/27/17 18:11 Dose: 4 mg Oxycodone/Acetaminophen (Percocet 325-5 Mg) 1 tab PO Q4H PRN PRN Reason: Pain (moderate 4-6) Oxycodone/Acetaminophen (Percocet 325-5 Mg) 2 tab PO Q4H PRN PRN Reason: Pain (moderate 4-6) Oxycodone/Acetaminophen (Percocet 325-5 Mg) 1 - 2 tab PO Q6H PRN PRN Reason: Pain Stop: 09/29/17 14:00 Simethicone (Simethicone) 80 mg PO Q4H PRN PRN Reason: Pain Sodium Chloride (Saline Flush) 10 ml FLUSH ASDIRECTED PRN PRN Reason: Keep Vein Open Sodium Chloride (Saline Flush) 2.5 ml FLUSH ASDIRECTED PRN PRN Reason: Keep Vein Open Sterile Water (Sterile Water For Irrigation) 1,000 ml IRR ASDIRECTED PRN PRN Reason: delivery Terbutaline Sulfate (Brethine) 0.25 mg SUBCUT ASDIRECTED PRN PRN Reason: Tacysystole Last Admin: 09/27/17 01:03 Dose: 0.25 mg Discontinued Medications Bupivacaine HCl (Sensorcaine-Mpf 0.5%) Confirm Administered Dose 20 ml .ROUTE .STK-MED ONE Stop: 09/27/17 01:24 Last Admin: 09/27/17 07:42 Dose: Not Given Cefazolin Sodium/Dextrose (Ancef) Confirm Administered Dose 2 gm IV .STK-MED ONE Stop: 09/27/17 01:20 Citric Acid/Sodium Citrate (Bicitra Solution) Confirm Administered Dose 30 ml .ROUTE .STK-MED ONE Stop: 09/27/17 01:25 Last Admin: 09/27/17 01:24 Dose: 30 ml Diphenhydramine HCl (Benadryl) 25 mg IVPUSH Q4H PRN PRN Reason: Itching Stop: 09/28/17 02:44 Diphenhydramine HCl (Benadryl) Confirm Administered Dose 50 mg .ROUTE .STK-MED ONE Stop: 09/27/17 02:57 Last Admin: 09/27/17 07:42 Dose: Not Given Fentanyl/Bupivacaine HCl (Phjebtsu-Cfezv-Hb 2 Mcg/Ml-0.125%) Confirm Administered Dose 100 mls @ as directed EP .STK-MED ONE Stop: 09/26/17 23:00 Last Admin: 09/27/17 07:42 Dose: Not Given Ketorolac Tromethamine (Toradol) 30 mg IVPUSH Q6H [facility] Stop: 09/28/17 02:31 Last Admin: 09/28/17 04:22 Dose: 30 mg Meperidine HCl (Demerol) Confirm Administered Dose 25 mg .ROUTE .STK-MED ONE Stop: 09/27/17 02:53 Last Admin: 09/27/17 07:42 Dose: Not Given Morphine Sulfate (Duramorph Pf) Confirm Administered Dose 1 mg .ROUTE .STK-MED ONE Stop: 09/27/17 01:20 Nalbuphine HCl (Nubain) 5 mg IVPUSH Q3H PRN PRN Reason: Pruritis Stop: 09/28/17 02:45 Naloxone HCl (Narcan) 0.1 mg IVPUSH ONETIME PRN PRN Reason: Other Stop: 09/28/17 02:45 Oxytocin (Pitocin) Confirm Administered Dose 10 unit .ROUTE .STK-MED ONE Stop: 09/27/17 02:05 Oxytocin (Pitocin) Confirm Administered Dose 20 unit .ROUTE .STK-MED ONE Stop: 09/27/17 02:06 Phenylephrine HCl (Phenylephrine In Ns 100 Mcg/Ml) Confirm Administered Dose 1 mg .ROUTE .STK-MED ONE Stop: 09/27/17 01:51 Ropivacaine (Naropin 0.2%) Confirm Administered Dose 20 ml .ROUTE .STK-MED ONE Stop: 09/26/17 23:00 Last Admin: 09/27/17 07:42 Dose: Not Given - Interaction Infant Disposition, : [place] in Room with Family Feeding: Breastfed ; Nursed Well Support Person: Significant Other - Recovery Exam Fundal Tone: Firm Fundal Level: 1 Fingerbreadths Below Umbilicus Fundal Placement: Midline Lochia Amount: Scant Lochia Color: Rubra/Red Perineum Description: Intact, Minimal Bruising/Swelling Episiotomy/Laceration: None Bladder Status: Voiding Urinary Elimination: Voided - Exam General: Alert, Oriented HEENT: Pupils Equal Lungs: Clear to Auscultation, Normal Respiratory Effort Cardiovascular: Regular Rate, Regular Rhythm GI/Abdominal Exam: Soft, No Distention Extremities: Pedal Edema Skin: Warm Wound/Incisions: Healing Well Psy/Mental Status: Alert, Normal Affect, Normal Mood - Problem List & Annotations (1) delivery delivered SNOMED Code(s): 278143062 Code(s): O82 - ENCOUNTER FOR DELIVERY WITHOUT INDICATION Status: Acute Current Visit: Yes - Problem List Review Problem List Initiated/Reviewed/Updated: Yes - Assessment Assessment:: POD 2 s/p primary LTCS for breech presentation Stable and afebrile - Plan Plan:: Continue routine care and aim for discharge tomorrow
[2017-09-28] MEDS ORDERED: Ibuprofen 800 MG Tab PO PRN (08:00)
[2017-09-28] MEDS: Docusate Sodium 100 MG Cap PO SCH ×2 (09:12→22:06)
[2017-09-28] MEDS: Bisacodyl 5 MG Tab PO SCH (09:12)
[2017-09-28] MEDS: Acetaminophen/oxyCODONE 325-5 MG Tab PO PRN (19:40)
[2017-09-29] MEDS: Bisacodyl 5 MG Tab PO SCH (08:50)
[2017-09-29] MEDS: Docusate Sodium 100 MG Cap PO SCH (08:50)
[2017-09-29] MEDS: Acetaminophen/oxyCODONE 325-5 MG Tab PO PRN ×2 (08:51→13:46)
--- NOTE | 2017-09-29 09:57 | PCM.PNPP ---
- General Info Date of Service: 09/29/17 Functional Status: Reports: Pain Controlled, Tolerating Diet, Ambulating, Urinating - Review of Systems General: Denies: Fever, Malaise HEENT: Denies: Headaches Pulmonary: Denies: Shortness of Breath, Pleuritic Chest Pain Cardiovascular: Denies: Chest Pain, Palpitations Gastrointestinal: Denies: Abdominal Pain Psychiatric: Denies: Confusion, Depression - General Info Date of Service: 09/29/17 - Patient Data Vital Signs - Most Recent: Last Vital Signs Temp 36.5 C 09/29/17 07:54 Pulse 74 09/29/17 07:54 Resp 15 09/29/17 07:54 BP 104/68 09/29/17 07:54 Pulse Ox 97 09/29/17 07:54 Weight - Most Recent: 158 lb Med Orders - Current: Current Medications Bisacodyl (Dulcolax) 10 mg RECTAL .ONCE PRN PRN Reason: Constipation Bisacodyl (Dulcolax) 10 mg PO DAILY [facility] Last Admin: 09/29/17 08:50 Dose: 10 mg Butorphanol Tartrate (Stadol) 1 mg IVPUSH Q1H PRN PRN Reason: Pain Last Admin: 09/26/17 22:21 Dose: 1 mg Carboprost Tromethamine (Hemabate Ds) 250 mcg IM ASDIRECTED PRN PRN Reason: Post Hemorrhage Diphenhydramine HCl (Benadryl) 25 mg IVPUSH Q6H PRN PRN Reason: Itching or Nausea Docusate Sodium (Colace) 100 mg PO BID [facility] Last Admin: 09/29/17 08:50 Dose: 100 mg Emollient Ointment (Lansinoh Hpa) 0 gm TOP ASDIRECTED PRN PRN Reason: Sore Nipples Fentanyl (Sublimaze) 25 - 50 mcg IVPUSH Q30M PRN PRN Reason: Pain Lactated Ringer's (Ringers, Lactated) 1,000 mls @ 150 mls/hr IV ASDIRECTED [facility] Last Admin: 09/26/17 23:16 Dose: 150 mls/hr Oxytocin/Sodium Chloride (Oxytocin 30 Unit/500 Ml-Ns) 30 unit in 500 mls @ 999 mls/hr IV TITRATE [facility] Oxytocin/Sodium Chloride (Oxytocin 30 Unit/500 Ml-Ns) 30 unit in 500 mls @ 2 mls/hr IV TITRATE [facility]; Protocol Tranexamic Acid 1,000 mg/ (Sodium Chloride) 110 mls @ 660 mls/hr IV ONETIME PRN PRN Reason: Bleeding Lactated Ringer's (Ringers, Lactated) 1,000 mls @ 125 mls/hr IV ASDIRECTED [facility] Last Admin: 09/27/17 04:06 Dose: 125 mls/hr Ibuprofen (Motrin) 800 mg PO Q8H PRN PRN Reason: mild pain or fever Last Admin: 09/28/17 17:23 Dose: 800 mg Lidocaine HCl (Xylocaine 1%) 50 ml INJECT .ONCE PRN PRN Reason: Laceration repair Methylergonovine Maleate (Methergine) 0.2 mg IM ASDIRECTED PRN PRN Reason: Post Hemorrhage Misoprostol (Cytotec) 200 mcg PO .ONCE PRN PRN Reason: Post Hemorrhage Misoprostol (Cytotec) 25 mcg VAG Q4H PRN PRN Reason: Cervical Ripening Last Admin: 09/26/17 16:45 Dose: 25 mcg Nalbuphine HCl (Nubain) 10 mg IVPUSH Q1H PRN PRN Reason: Pain (severe 7-10) Ondansetron HCl (Zofran) 4 mg IV Q4H PRN PRN Reason: Nausea/Vomiting Last Admin: 09/27/17 18:11 Dose: 4 mg Oxycodone/Acetaminophen (Percocet 325-5 Mg) 1 tab PO Q4H PRN PRN Reason: Pain (moderate 4-6) Last Admin: 09/28/17 12:13 Dose: 1 tab Oxycodone/Acetaminophen (Percocet 325-5 Mg) 2 tab PO Q4H PRN PRN Reason: Pain (moderate 4-6) Last Admin: 09/29/17 08:51 Dose: 2 tab Oxycodone/Acetaminophen (Percocet 325-5 Mg) 1 - 2 tab PO Q6H PRN PRN Reason: Pain Stop: 09/29/17 14:00 Simethicone (Simethicone) 80 mg PO Q4H PRN PRN Reason: Pain Sodium Chloride (Saline Flush) 10 ml FLUSH ASDIRECTED PRN PRN Reason: Keep Vein Open Sodium Chloride (Saline Flush) 2.5 ml FLUSH ASDIRECTED PRN PRN Reason: Keep Vein Open Sterile Water (Sterile Water For Irrigation) 1,000 ml IRR ASDIRECTED PRN PRN Reason: delivery Terbutaline Sulfate (Brethine) 0.25 mg SUBCUT ASDIRECTED PRN PRN Reason: Tacysystole Last Admin: 09/27/17 01:03 Dose: 0.25 mg Discontinued Medications Bupivacaine HCl (Sensorcaine-Mpf 0.5%) Confirm Administered Dose 20 ml .ROUTE .STK-MED ONE Stop: 09/27/17 01:24 Last Admin: 09/27/17 07:42 Dose: Not Given Cefazolin Sodium/Dextrose (Ancef) Confirm Administered Dose 2 gm IV .STK-MED ONE Stop: 09/27/17 01:20 Citric Acid/Sodium Citrate (Bicitra Solution) Confirm Administered Dose 30 ml .ROUTE .STK-MED ONE Stop: 09/27/17 01:25 Last Admin: 09/27/17 01:24 Dose: 30 ml Diphenhydramine HCl (Benadryl) 25 mg IVPUSH Q4H PRN PRN Reason: Itching Stop: 09/28/17 02:44 Diphenhydramine HCl (Benadryl) Confirm Administered Dose 50 mg .ROUTE .STK-MED ONE Stop: 09/27/17 02:57 Last Admin: 09/27/17 07:42 Dose: Not Given Fentanyl/Bupivacaine HCl (Qvizgpqd-Bwhoy-Qd 2 Mcg/Ml-0.125%) Confirm Administered Dose 100 mls @ as directed EP .STK-MED ONE Stop: 09/26/17 23:00 Last Admin: 09/27/17 07:42 Dose: Not Given Ketorolac Tromethamine (Toradol) 30 mg IVPUSH Q6H TOÑ[facility] Stop: 09/28/17 02:31 Last Admin: 09/28/17 04:22 Dose: 30 mg Meperidine HCl (Demerol) Confirm Administered Dose 25 mg .ROUTE .STK-MED ONE Stop: 09/27/17 02:53 Last Admin: 09/27/17 07:42 Dose: Not Given Morphine Sulfate (Duramorph Pf) Confirm Administered Dose 1 mg .ROUTE .STK-MED ONE Stop: 09/27/17 01:20 Nalbuphine HCl (Nubain) 5 mg IVPUSH Q3H PRN PRN Reason: Pruritis Stop: 09/28/17 02:45 Naloxone HCl (Narcan) 0.1 mg IVPUSH ONETIME PRN PRN Reason: Other Stop: 09/28/17 02:45 Oxytocin (Pitocin) Confirm Administered Dose 10 unit .ROUTE .STK-MED ONE Stop: 09/27/17 02:05 Oxytocin (Pitocin) Confirm Administered Dose 20 unit .ROUTE .STK-MED ONE Stop: 09/27/17 02:06 Phenylephrine HCl (Phenylephrine In Ns 100 Mcg/Ml) Confirm Administered Dose 1 mg .ROUTE .STK-MED ONE Stop: 09/27/17 01:51 Ropivacaine (Naropin 0.2%) Confirm Administered Dose 20 ml .ROUTE .STK-MED ONE Stop: 09/26/17 23:00 Last Admin: 09/27/17 07:42 Dose: Not Given - Interaction Infant Disposition, : in Room with Family Feeding: Breastfed ; Nursed Well Support Person: Significant Other - Recovery Exam Fundal Tone: Firm Fundal Level: At Umbilicus Fundal Placement: Midline Lochia Amount: Small Lochia Color: Rubra/Red Perineum Description: Intact, Minimal Bruising/Swelling Episiotomy/Laceration: None Bladder Status: Voiding Urinary Elimination: Voided - Exam General: Alert, Oriented HEENT: Pupils Equal Lungs: Clear to Auscultation, Normal Respiratory Effort Cardiovascular: Regular Rate, Regular Rhythm GI/Abdominal Exam: Normal Bowel Sounds Extremities: Normal Inspection Skin: Warm Wound/Incisions: Healing Well Psy/Mental Status: Alert - Problem List & Annotations (1) delivery delivered SNOMED Code(s): 167567685 Code(s): O82 - ENCOUNTER FOR DELIVERY WITHOUT INDICATION Status: Acute Current Visit: Yes - Problem List Review Problem List Initiated/Reviewed/Updated: Yes - Assessment Assessment:: POD 2 s/p primary LTCS for breech presentation Stable and afebrile Clinically stable for discharge today - Plan Plan:: Discharge instructions reviewed Nothing in the vagina for 6 weeks Incision care reviewed Bleeding and infection precautions reviewed Prescription for pain meds given, Percocet and Ibuprofen Follow up in [address] flower
== END 2017-09-29 15:30 | disposition home or self-care (01) | DRG 766 ==
LOC: MW.OBCHECK 14:45 → MW.OB 15:09 → OBSVTOIN 09-27 01:43 → MW.OB 09-27 03:00
PROVIDERS: ADMIT Obstetrics & Gynecology; ATTEND Obstetrics & Gynecology
PROC: 10D00Z1 Extraction of Products of Conception, Low, Open Approach (ICD-10-PCS; principal; 2017-09-27)
PROC: 3E0P7VZ Introduction of Hormone into Female Reproductive, Via Natural or Artificial Opening (ICD-10-PCS; 2017-09-27)
DX: O32.1XX0 Maternal care for breech presentation, not applicable or unspecified (principal); Z3A.41 41 weeks gestation of pregnancy; Z37.0 Single live birth
CPT/HCPCS: 01961; 36415; 59025; 82803; 85014; 85018; 85027; 86850; 86900; 86901; A9270-GY; J0595; J0690; J1885; J2274; J2405; J2590; J2795; J3105; J7120

== ENCOUNTER 2020-07-22 13:58 | Emergency (ER) | payer SELFPAY ==
--- NOTE | 2020-07-22 14:18 | EDM.PDOC ---
ED HPI GENERAL MEDICAL PROBLEM - General Chief Complaint: Upper Extremity Injury/Pain Stated Complaint: POSSIBLE BROKEN RIGHT ARM Time Seen by Provider: 07/22/20 13:58 Source of Information: Reports: Patient History Limitations: Reports: No Limitations - History of Present Illness INITIAL COMMENTS - FREE TEXT/NARRATIVE: 30 yo F p/w right wrist pain after a fall 3 days ago. She was walking her dog and was dragged to the ground after slipping on snow. She notes bruising to her wrist. Pain is localized to right wrist, nonradiating, constant, moderate, no alleviating factors, exacerbated with movement/palpation. Past medical history: No additional pertinent history Surgical history: No additional pertinent history Social history: No additional pertinent history Family history: No additional pertinent history ROS: A 10-point review of systems, other than pertinent positives and negatives as stated per HPI, is otherwise negative PHYSICAL EXAM General: AOx4, GCS 15, mild distress HEENT: moist mucous membrane, NC/AT Neck: supple, no meningismus, no cervical lymphadenopathy Skin: ecchymosis to right wrist palmar surface Cardiac: S1S2 RRR, no edema Respiratory: CTAB, no rales or crackles Abdomen: Soft, nontender, no rebound or guarding Back: nontender to C/T/L spine. Musculoskeletal: NVI distally, no deformity, ttp to right wrist on palmar surface, no snuffbox ttp. Neuro: Normal motor, 5/5 strength to right wrist with flexsion and extension. R wrist Pain Score (Numeric/FACES): 8 - Related Data Allergies Allergy/AdvReac Type Severity Reaction Status Date / Time No Known Allergies Allergy Verified 07/22/20 14:18 Home Meds: Home Meds Naproxen [Naprosyn] 500 mg PO Q12HR #30 tab 07/22/20 [Rx] Past Medical History - Past Health History Medical/Surgical History: Denies Medical/Surgical History HEENT History: Reports: Other (See Below) Other HEENT History: glasses Cardiovascular History: Reports: Heart Murmur Other Cardiovascular History: was diagnosed as a Respiratory History: Reports: Other (See Below) Other Respiratory History: Environmental allergies sneezing and itching of eyes 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 Neurological History: Reports: Concussion, Migraines Other Neuro History: x3 - Infectious Disease History Infectious Disease History: Reports: Chicken Pox - Past Surgical History HEENT Surgical History: Reports: None Cardiovascular Surgical History: Reports: None Respiratory Surgical History: Reports: None Neurological Surgical History: Reports: None Social & Family History - Family History Family Medical History: No Pertinent Family History - Caffeine Use Caffeine Use: Reports: Coffee, Soda Other Caffeine Use: 1-2x daily Review of Systems - Review of Systems Review Of Systems: See Below ED EXAM, GENERAL - Physical Exam Exam: See Below ED TRAUMA EXTREMITY PROCEDURES - Splinting Right Upper Extremity Splint Site: Right wrist Pre-Procedure NV Status: Normal Post-Procedure NV Status: Normal Splint Material: Fiberglass Splint Design: Sugar Tong Applied & Form Fitted By: Nurse Provider Post-Splint Application NV Check: NV Status Normal, Good Position Complications: No Progress/Comments: Splint: Sugar tong Indication: Right distal radius fracture How will this benefit patient: immobilization Duration: 7 days Course - Vital Signs Last Recorded V/S: Last Vital Signs Temp 97.5 F 07/22/20 14:00 Pulse 82 07/22/20 14:00 Resp 17 07/22/20 14:00 BP 101/70 07/22/20 14:00 Pulse Ox 98 07/22/20 14:00 - Orders/Labs/Meds Orders: Active Orders 24 hr Category Date Time Status Acetaminophen/oxyCODONE [Percocet 325-5 MG] Med 07/22/20 16:23 Once 1 tab PO ONETIME ONE DME for Discharge [COMM] Stat Oth 07/22/20 16:22 Ordered - Re-Assessments/Exams Free Text/Narrative Re-Assessment/Exam: 07/22/20 16:24 After splinting and sling in the ER, the patient improved and is currently stable for discharge. I performed a repeat exam and did not appreciate new abnormal findings. Patient exhibits normal vital signs and has a normal gait on road test. I advised the patient to return to the ER for reevaluation if symptoms worsened, including fever, worsening pain, or any other worrisome symptoms. I instructed the patient to follow up with Dr. Regina Young next Saturday. MEDICAL DECISION MAKING: I reviewed the patients past medical records, lab and radiographic findings. I discussed the case with the patient. My differential diagnosis included: Fracture, dislocation. The affected extremity demonstrated good distal perfusion, warm, pink, cap refill <2 seconds, compartments soft, pulses equal in both extremities. Patient understands to return immediately for worsening pain, swelling, fever, numbness/tingling or other concerns and to f/u with orthopedics next Saturday. Departure - Departure Time of Disposition: 16:25 Disposition: Home, Self-Care 01 Condition: Good Clinical Impression: Fracture of radius - Discharge Information *PRESCRIPTION DRUG MONITORING PROGRAM REVIEWED*: Not Applicable *COPY OF PRESCRIPTION DRUG MONITORING REPORT IN PATIENT ISAIAS: Not Applicable Prescriptions: Naproxen [Naprosyn] 500 mg PO Q12HR #30 tab Instructions: Cast or Splint Care, Adult, [id number], How To Use a Sling, [id number], Radial Fracture Referrals: Rafael Young DO [Physician] - 07/26/20 Forms: ED Department Discharge Additional Instructions: The need for follow-up, as well as the timing and circumstances, are variable depending upon the specifics of your emergency department visit. If you don't have a primary care physician on staff, we will provide you with a referral. We always advise you to contact your personal physician following an emergency department visit to inform them of the circumstance of the visit and for follow-up with them and/or the need for any referrals to a consulting specialist. The emergency department will also refer you to a specialist when appropriate. This referral assures that you have the opportunity for follow-up care with a specialist. All of these measure are taken in an effort to provide you with optimal care, which includes your follow-up. Under all circumstances we always encourage you to contact your private physician who remains a resource for coordinating your care. When calling for follow-up care, please make the office aware that this follow-up is from your recent emergency room visit. If for any reason you are refused follow-up, please contact the [facility] Emergency Department at and asked to speak to the emergency department charge nurse. If you do not have a primary care doctor, please follow up with the clinics below next Saturday [facility] [address] [place] [address], [address] [place] [address] Sepsis Event Note (ED) - Focused Exam Vital Signs: Vital Signs Temp Pulse Resp BP Pulse Ox 07/22/20 14:00 97.5 F 82 17 101/70 98 - My Orders Last 24 Hours: My Active Orders 07/22/20 16:22 DME for Discharge [COMM] Stat 07/22/20 16:23 Acetaminophen/oxyCODONE [Percocet 325-5 MG] 1 tab PO ONETIME ONE - Assessment/Plan Last 24 Hours: My Active Orders 07/22/20 16:22 DME for Discharge [COMM] Stat 07/22/20 16:23 Acetaminophen/oxyCODONE [Percocet 325-5 MG] 1 tab PO ONETIME ONE
--- NOTE | 2020-07-22 16:13 | CR ---
Indication: Wrist pain after fall Technique: Three views right wrist Comparison: None Findings: Bones: Alignment is normal. There is a nondisplaced intra-articular fracture involving the thenar side of the distal radius. This is best seen on the oblique view. No bone lesions. Joint spaces: Unremarkable. Soft tissues: Mild soft tissue swelling around the distal radius. Impression: Nondisplaced intra-articular fracture of the thenar side of the distal radius. Mild associated overlying soft tissue swelling. Dictated by Hailey Gutierres MD @ Jul 22 2020 4:03PM Signed by Dr. Hailey Gutierres @ Jul 22 2020 4:11PM
[2020-07-22] MEDS ORDERED: Acetaminophen/oxyCODONE 325-5 MG Tab PO ONE (16:23)
== END 2020-07-22 16:50 | disposition home or self-care (01) ==
LOC: MW.ED 13:58
DX: S52.571A Other intraarticular fracture of lower end of right radius, initial encounter for closed fracture (principal); W00.0XXA Fall on same level due to ice and snow, initial encounter
CPT/HCPCS: 29125; 73110; 99283; A9270